=== PATIENT | male | born 1985 | race Two or more races ===

== ENCOUNTER 2018-01-01 18:52 | Inpatient (IN) | payer MEDICAID ==
[~2018-01-01] VITALS: Ht 182.9 cm; Wt 97.1 kg
[2018-01-01] MEDS ORDERED: LIDOCAINE 2%, 20ML SQ ONE (19:00)
[2018-01-01] MEDS ORDERED: AMLO5TAB4 PO (19:11)
[2018-01-01] MEDS ORDERED: METF500T17 PO (19:11)
[2018-01-01] MEDS ORDERED: LIDOCAINE-MPF 2%, 2ML ONE (19:21)
[2018-01-01 20:06] LABS: BASOPHILS % (AUTO) 0 % (0-1); EOSINOPHILS # (AUTO) 0.06 x10^3/uL (0-0.4); EOSINOPHILS % (AUTO) 0 % (1-7); LYMPHOCYTES # (AUTO) 1.72 x10^3/uL (1-3.4); LYMPHOCYTES % (AUTO) 13 % (22-44); MD NO; MEAN CORPUSCULAR HEMOGLOBIN 29.6 pg (27.5-34.5); MEAN CORPUSCULAR HGB CONC 34.3 g/dL (33.2-36.2); MEAN CORPUSCULAR VOLUME 86.2 fL (81-97); MEAN PLATELET VOLUME 9.2 fL (7.4-10.4); MONOCYTES # (AUTO) 1.16 x10^3/uL (0.2-0.8); MONOCYTES % (AUTO) 9 % (2-9); NEUTROPHILS # (AUTO) 10.43 x10^3/uL (1.8-6.8); NEUTROPHILS % (AUTO) 78 % (42-75); PLATELET COUNT 296 x10^3/uL (130-400); RED BLOOD COUNT 5.04 x10^6/uL (4.38-5.82); RED CELL DISTRIBUTION WIDTH 13.5 % (9.4-14.8)
[2018-01-01 20:17] LABS: ALANINE AMINOTRANSFERASE 28 U/L (12-78); ALBUMIN 3.7 g/dL (3.4-5.0); ANION GAP 20 mmol/L (5-15); CHLORIDE 94 mmol/L (98-107)
[2018-01-01 20:19] LABS: ALKALINE PHOSPHATASE 156 U/L (45-117); BILIRUBIN,TOTAL 0.5 mg/dL (0.2-1.0); CREATININE 1.33 mg/dL (0.7-1.3)
[2018-01-01 20:43] LABS: ACETONE, SERUM Large (80mg/dL) mg/dL (Negative)
[2018-01-01] MEDS ORDERED: SODIUM CHLORIDE 0.9% 1,000ML IVBOLUS ONE (21:00)
[2018-01-01] MEDS ORDERED: SODIUM CHLORIDE FLUSH 10ML SYR IVF ONE (21:00)
[2018-01-01] MEDS ORDERED: AMPICILLIN/SULBACTAM 3 GM in SODIUM CHLORIDE 0.9% 100 ML IV ONE (21:30)
[2018-01-01] MEDS ORDERED: REGULAR INSULIN 62.5 UNITS in SODIUM CHLORIDE 0.9% 249.375 ML IV PRN ×2 (21:37→22:07)
[2018-01-01 21:53] LABS: MICROSCOPIC NOT IND
[2018-01-01] MEDS ORDERED: D5%-0.45NACL+KCL 20MEQ 1,000 ML IV SCH (22:00)
[2018-01-01] MEDS ORDERED: OMNIPAQUE 350 MG/ML, 100ML BOTTLE ONE (22:00)
[2018-01-01] MEDS ORDERED: D5%-0.45% NACL 1,000 ML IV PRN (22:07)
[2018-01-01] MEDS ORDERED: SODIUM CHLORIDE 0.9% 1,000 ML IV SCH (22:07)
[2018-01-01] MEDS ORDERED: DEXTROSE 50%, 50ML SYRINGE IVPush PRN (22:30)
[2018-01-01] MEDS ORDERED: ONDANSETRON 2MG/ML, 2ML IVPush PRN (22:30)
[2018-01-01] MEDS ORDERED: DEXTROSE 4 GM TAB.CHEW PO PRN (22:30)
[2018-01-01] MEDS ORDERED: ACETAMINOPHEN 325 MG TABLET PO PRN (22:30)
[2018-01-01] MEDS ORDERED: GLUCAGON 1 MG IM PRN (22:30)
[2018-01-01] MEDS ORDERED: AMPICILLIN/SULBACTAM 3 GM in SODIUM CHLORIDE 0.9% 100 ML IV SCH (22:30)
[2018-01-01 23:00] LABS: HEMOGLOBIN A1C 11.5 % (4.2-6.3)
[2018-01-02 00:34] VITALS: BP 159/102
[2018-01-02 00:53] LABS: ANION GAP 17 mmol/L (5-15); CALCIUM 8.3 mg/dL (8.5-10.1); CHLORIDE 104 mmol/L (98-107); CREATININE 1.11 mg/dL (0.7-1.3)
[2018-01-02] MEDS ORDERED: POTASSIUM CHLORIDE 20 MEQ TAB.ER.PRT PO ONE (02:30)
[2018-01-02 04:40] LABS: CHLORIDE 106 mmol/L (98-107)
[2018-01-02 04:47] LABS: ANION GAP 14 mmol/L (5-15); CALCIUM 8.3 mg/dL (8.5-10.1); CREATININE 0.94 mg/dL (0.7-1.3)
[2018-01-02] MEDS: AMPICILLIN/SULBACTAM 3 GM in SODIUM CHLORIDE 0.9% 100 ML IV SCH ×3 (05:20→20:45)
[2018-01-02] MEDS ORDERED: POTASSIUM PHOSPHATE 44 MEQ in SODIUM CHLORIDE 0.9% 500 ML IV ONE (07:00)
[2018-01-02 08:51] LABS: ANION GAP 15 mmol/L (5-15); CALCIUM 8.2 mg/dL (8.5-10.1); CHLORIDE 106 mmol/L (98-107)
[2018-01-02 08:52] LABS: CREATININE 0.97 mg/dL (0.7-1.3)
[2018-01-02] MEDS ORDERED: REGULAR INSULIN 62.5 UNITS in SODIUM CHLORIDE 0.9% 249.375 ML IV PRN (09:30)
[2018-01-02 09:45] LABS: INTERNATIONAL NORMALIZED RATIO 0.9 (0.93-1.1); PROTHROMBIN TIME 9.4 Seconds (9.6-11.5)
[2018-01-02] MEDS: FAMOTIDINE 20 MG/2 ML IVPush SCH ×2 (10:55→20:51)
[2018-01-02] MEDS: SODIUM CHLORIDE FLUSH 10ML SYR IVF SCH ×4 (10:55→20:45)
[2018-01-02] MEDS: LISINOPRIL 10 MG TABLET PO SCH (10:55)
[2018-01-02] MEDS: D5%-0.45% NACL 1,000 ML IV PRN (11:19)
[2018-01-02 13:26] LABS: ANION GAP 12 mmol/L (5-15); CALCIUM 8.1 mg/dL (8.5-10.1); CHLORIDE 108 mmol/L (98-107); CREATININE 0.76 mg/dL (0.7-1.3)
[2018-01-02] MEDS ORDERED: LIDOCAINE 1%-EPI 1:100K, 30ML ONE (14:31)
[2018-01-02] MEDS ORDERED: NEOSPORIN OINT, 15GM ONE (14:31)
[2018-01-02] MEDS ORDERED: FENTANYL PF 100 MCG/2ML ONE (14:55)
[2018-01-02] MEDS ORDERED: MIDAZOLAM 1 MG/ML, 2ML ONE (14:55)
[2018-01-02] MEDS ORDERED: OXYMETAZOLINE NASAL SPRAY 0.05%, 15ML ONE (15:09)
[2018-01-02] MEDS ORDERED: INSULIN SINGLE DOSE, ER SQ-INSULIN ONE (15:11)
[2018-01-02] MEDS ORDERED: PROPOFOL 10 MG/ML, 20ML ONE (15:11)
[2018-01-02] MEDS ORDERED: ONDANSETRON 2MG/ML, 2ML ONE (15:11)
[2018-01-02] MEDS ORDERED: FENTANYL PF 250 MCG/5ML ONE (15:22)
[2018-01-02] MEDS ORDERED: LIDOCAINE 1%-EPI 1:100K, 30ML INFIL ONE (15:27)
[2018-01-02] MEDS ORDERED: LABETALOL 5MG/ML, 20ML IV PRN (16:30)
[2018-01-02] MEDS ORDERED: ONDANSETRON 2MG/ML, 2ML IV PRN (16:30)
[2018-01-02] MEDS ORDERED: PROMETHAZINE 25 MG/ML, 1ML IV PRN (16:30)
[2018-01-02] MEDS ORDERED: ENALAPRILAT 1.25 MG/ML, 2ML IV PRN (16:30)
[2018-01-02] MEDS ORDERED: MORPHINE SULFATE 4 MG/ML, 1ML IVPush PRN ×2 (16:30→20:30)
[2018-01-02] MEDS ORDERED: OXYcodone 5 MG/5 ML ORAL.SOL UDC PO PRN (16:30)
[2018-01-02] MEDS ORDERED: ONDANSETRON ODT 8 MG PO PRN (16:30)
[2018-01-02] MEDS ORDERED: MEPERIDINE/PF 25MG/0.5ML IVPush PRN (16:30)
[2018-01-02] MEDS ORDERED: ACETAMINOPHEN 325 MG TABLET PO PRN (16:30)
[2018-01-02] MEDS ORDERED: FENTANYL PF 100 MCG/2ML IV PRN (16:30)
[2018-01-02] MEDS ORDERED: OXYcodone 5 MG/5 ML ORAL.SOL UDC ONE (16:31)
[2018-01-02] MEDS ORDERED: MEPERIDINE/PF 50 MG/ML ONE (16:31)
[2018-01-02 18:50] LABS: ANION GAP 13 mmol/L (5-15); CALCIUM 8.1 mg/dL (8.5-10.1); CHLORIDE 107 mmol/L (98-107); CREATININE 0.85 mg/dL (0.7-1.3)
[2018-01-02 23:25] LABS: ANION GAP 9 mmol/L (5-15); CHLORIDE 110 mmol/L (98-107); CREATININE 0.78 mg/dL (0.7-1.3)
[2018-01-03] MEDS: D5%-0.45% NACL 1,000 ML IV PRN (02:08)
[2018-01-03] MEDS: AMPICILLIN/SULBACTAM 3 GM in SODIUM CHLORIDE 0.9% 100 ML IV SCH ×4 (03:12→21:12)
[2018-01-03 04:46] LABS: BASOPHILS # (AUTO) 0.03 x10^3/uL (0-0.1); BASOPHILS % (AUTO) 0 % (0-1); EOSINOPHILS % (AUTO) 1 % (1-7); LYMPHOCYTES # (AUTO) 1.16 x10^3/uL (1-3.4); LYMPHOCYTES % (AUTO) 13 % (22-44); MD NO; MEAN CORPUSCULAR HEMOGLOBIN 29.5 pg (27.5-34.5); MEAN CORPUSCULAR HGB CONC 34.5 g/dL (33.2-36.2); MEAN CORPUSCULAR VOLUME 85.4 fL (81-97); MEAN PLATELET VOLUME 8.3 fL (7.4-10.4); MONOCYTES % (AUTO) 9 % (2-9); NEUTROPHILS # (AUTO) 6.89 x10^3/uL (1.8-6.8); NEUTROPHILS % (AUTO) 77 % (42-75); PLATELET COUNT 260 x10^3/uL (130-400); RED BLOOD COUNT 4.29 x10^6/uL (4.38-5.82); RED CELL DISTRIBUTION WIDTH 13.9 % (9.4-14.8)
[2018-01-03 04:54] LABS: ALBUMIN 2.7 g/dL (3.4-5.0); ANION GAP 9 mmol/L (5-15); CALCIUM 8.2 mg/dL (8.5-10.1); CHLORIDE 110 mmol/L (98-107)
[2018-01-03 04:59] LABS: ALANINE AMINOTRANSFERASE 22 U/L (12-78); ALKALINE PHOSPHATASE 95 U/L (45-117); BILIRUBIN,TOTAL 0.4 mg/dL (0.2-1.0); CREATININE 0.76 mg/dL (0.7-1.3); TOTAL PROTEIN 6.4 g/dL (6.4-8.2)
[2018-01-03] MEDS: SODIUM CHLORIDE FLUSH 10ML SYR IVF SCH ×4 (08:40→21:00)
[2018-01-03] MEDS: LISINOPRIL 10 MG TABLET PO SCH (08:43)
[2018-01-03] MEDS: ENOXAPARIN 40 MG/0.4 ML SQ SCH (08:44)
[2018-01-03] MEDS: FAMOTIDINE 20 MG/2 ML IVPush SCH ×2 (08:44→21:12)
[2018-01-03 11:00] VITALS: BP 129/68
[2018-01-03] MEDS ORDERED: INSULIN GLARGINE 100 UNITS/ML, PEN SQ-INSULIN SCH (11:05)
[2018-01-03] MEDS ORDERED: ACETAMINOPHEN 500 MG TABLET PO PRN (11:06)
[2018-01-03] MEDS ORDERED: POTASSIUM PHOSPHATE 44 MEQ in SODIUM CHLORIDE 0.9% 500 ML IV ONE (11:30)
[2018-01-03] MEDS ORDERED: INSULIN LISPRO 100 UNITS/ML, PEN SQ-INSULIN SCH (13:00)
[2018-01-03 14:00] VITALS: BP 132/92
[2018-01-03] MEDS: INSULIN LISPRO 100 UNITS/ML, PEN SQ-INSULIN SCH ×2 (16:35→21:51)
[2018-01-03] MEDS: MICAFUNGIN 100 MG in SODIUM CHLORIDE 0.9% 100 ML IV SCH (19:42)
[2018-01-03 20:10] VITALS: BP 136/83
[2018-01-03 21:13] VITALS: BP 126/62
[2018-01-03] MEDS: INSULIN GLARGINE 100 UNITS/ML, PEN SQ-INSULIN SCH (21:51)
[2018-01-04] MEDS: INSULIN LISPRO 100 UNITS/ML, PEN SQ-INSULIN SCH ×6 (01:11→21:22)
[2018-01-04 02:50] VITALS: BP 141/82
[2018-01-04] MEDS: AMPICILLIN/SULBACTAM 3 GM in SODIUM CHLORIDE 0.9% 100 ML IV SCH ×4 (02:55→21:11)
[2018-01-04 05:22] LABS: BASOPHILS # (AUTO) 0.02 x10^3/uL (0-0.1); BASOPHILS % (AUTO) 0 % (0-1); EOSINOPHILS # (AUTO) 0.13 x10^3/uL (0-0.4); EOSINOPHILS % (AUTO) 2 % (1-7); LYMPHOCYTES # (AUTO) 1.46 x10^3/uL (1-3.4); LYMPHOCYTES % (AUTO) 25 % (22-44); MD NO; MEAN CORPUSCULAR HEMOGLOBIN 29.1 pg (27.5-34.5); MEAN CORPUSCULAR VOLUME 85.7 fL (81-97); MEAN PLATELET VOLUME 8.1 fL (7.4-10.4); MONOCYTES # (AUTO) 0.75 x10^3/uL (0.2-0.8); MONOCYTES % (AUTO) 13 % (2-9); NEUTROPHILS # (AUTO) 3.46 x10^3/uL (1.8-6.8); NEUTROPHILS % (AUTO) 59 % (42-75); PLATELET COUNT 250 x10^3/uL (130-400); RED BLOOD COUNT 4.17 x10^6/uL (4.38-5.82); RED CELL DISTRIBUTION WIDTH 13.4 % (9.4-14.8)
[2018-01-04 05:38] LABS: CHLORIDE 107 mmol/L (98-107)
[2018-01-04 05:46] LABS: ANION GAP 13 mmol/L (5-15); CALCIUM 8.2 mg/dL (8.5-10.1); CREATININE 0.61 mg/dL (0.7-1.3)
[2018-01-04 07:13] VITALS: BP 144/94
[2018-01-04] MEDS: SODIUM CHLORIDE FLUSH 10ML SYR IVF SCH ×4 (09:00→21:00)
[2018-01-04] MEDS: LISINOPRIL 20 MG TABLET PO SCH (09:00)
[2018-01-04] MEDS: ENOXAPARIN 40 MG/0.4 ML SQ SCH (09:20)
[2018-01-04] MEDS: INSULIN GLARGINE 100 UNITS/ML, PEN SQ-INSULIN SCH ×2 (09:20→21:23)
[2018-01-04] MEDS: POTASSIUM CHLORIDE 20 MEQ TAB.ER.PRT PO SCH (17:28)
[2018-01-04] MEDS: MICAFUNGIN 100 MG in SODIUM CHLORIDE 0.9% 100 ML IV SCH (19:54)
[2018-01-04 19:56] VITALS: BP 127/86
[2018-01-04] MEDS: metFORMIN 500 MG TABLET PO SCH (21:09)
[2018-01-05] MEDS: INSULIN LISPRO 100 UNITS/ML, PEN SQ-INSULIN SCH ×6 (00:55→20:43)
[2018-01-05 02:42] VITALS: BP 121/80
[2018-01-05] MEDS: AMPICILLIN/SULBACTAM 3 GM in SODIUM CHLORIDE 0.9% 100 ML IV SCH ×4 (02:56→21:49)
[2018-01-05 07:13] VITALS: BP 141/88
[2018-01-05 08:00] LABS: ANION GAP 10 mmol/L (5-15); CALCIUM 8.6 mg/dL (8.5-10.1); CHLORIDE 107 mmol/L (98-107); CREATININE 0.66 mg/dL (0.7-1.3)
[2018-01-05] MEDS: SODIUM CHLORIDE FLUSH 10ML SYR IVF SCH ×4 (09:00→20:43)
[2018-01-05] MEDS: metFORMIN 500 MG TABLET PO SCH ×2 (09:32→20:35)
[2018-01-05] MEDS: DOXYCYCLINE 100MG TABLET PO SCH ×2 (09:32→20:35)
[2018-01-05] MEDS: POTASSIUM CHLORIDE 20 MEQ TAB.ER.PRT PO SCH ×2 (09:32→17:16)
[2018-01-05] MEDS: AMLODIPINE 5 MG TABLET PO SCH (09:33)
[2018-01-05] MEDS: LISINOPRIL 20 MG TABLET PO SCH (09:33)
[2018-01-05] MEDS: ENOXAPARIN 40 MG/0.4 ML SQ SCH (09:34)
[2018-01-05] MEDS: INSULIN GLARGINE 100 UNITS/ML, PEN SQ-INSULIN SCH ×2 (09:53→20:42)
[2018-01-05 15:06] VITALS: BP 138/82
[2018-01-05] MEDS: MICAFUNGIN 100 MG in SODIUM CHLORIDE 0.9% 100 ML IV SCH (20:35)
[2018-01-05 20:49] VITALS: BP 139/85
[2018-01-06 02:42] VITALS: BP 129/82
[2018-01-06] MEDS: AMPICILLIN/SULBACTAM 3 GM in SODIUM CHLORIDE 0.9% 100 ML IV SCH ×4 (02:51→21:03)
[2018-01-06 05:47] LABS: ANION GAP 7 mmol/L (5-15); CALCIUM 8.8 mg/dL (8.5-10.1); CHLORIDE 107 mmol/L (98-107)
[2018-01-06 05:50] LABS: ALANINE AMINOTRANSFERASE 27 U/L (12-78); ALKALINE PHOSPHATASE 103 U/L (45-117); BILIRUBIN,TOTAL 0.3 mg/dL (0.2-1.0); CREATININE 0.79 mg/dL (0.7-1.3); TOTAL PROTEIN 7.1 g/dL (6.4-8.2)
[2018-01-06 06:00] LABS: BASOPHILS # (AUTO) 0.02 x10^3/uL (0-0.1); BASOPHILS % (AUTO) 0 % (0-1); EOSINOPHILS # (AUTO) 0.12 x10^3/uL (0-0.4); EOSINOPHILS % (AUTO) 2 % (1-7); LYMPHOCYTES # (AUTO) 2.17 x10^3/uL (1-3.4); LYMPHOCYTES % (AUTO) 29 % (22-44); MD NO; MEAN CORPUSCULAR HEMOGLOBIN 29.2 pg (27.5-34.5); MEAN CORPUSCULAR HGB CONC 33.6 g/dL (33.2-36.2); MEAN CORPUSCULAR VOLUME 86.8 fL (81-97); MEAN PLATELET VOLUME 7.7 fL (7.4-10.4); MONOCYTES # (AUTO) 0.68 x10^3/uL (0.2-0.8); MONOCYTES % (AUTO) 9 % (2-9); NEUTROPHILS # (AUTO) 4.42 x10^3/uL (1.8-6.8); NEUTROPHILS % (AUTO) 60 % (42-75); PLATELET COUNT 340 x10^3/uL (130-400); RED BLOOD COUNT 4.73 x10^6/uL (4.38-5.82); RED CELL DISTRIBUTION WIDTH 13.8 % (9.4-14.8)
[2018-01-06] MEDS: INSULIN LISPRO 100 UNITS/ML, PEN SQ-INSULIN SCH ×4 (07:00→21:18)
[2018-01-06 07:35] VITALS: BP 148/92
[2018-01-06] MEDS: LISINOPRIL 20 MG TABLET PO SCH (09:00)
[2018-01-06] MEDS: metFORMIN 500 MG TABLET PO SCH ×2 (09:00→21:08)
[2018-01-06] MEDS: AMLODIPINE 5 MG TABLET PO SCH (09:00)
[2018-01-06] MEDS: ENOXAPARIN 40 MG/0.4 ML SQ SCH (09:00)
[2018-01-06] MEDS: SODIUM CHLORIDE FLUSH 10ML SYR IVF SCH ×4 (09:00→21:03)
[2018-01-06] MEDS: INSULIN GLARGINE 100 UNITS/ML, PEN SQ-INSULIN SCH ×2 (09:01→21:17)
[2018-01-06] MEDS: SULFAMETH./TRIMETHOPRIM DS 800MG/160MG TABLET PO SCH ×2 (09:16→21:08)
[2018-01-06] MEDS: POTASSIUM CHLORIDE 20 MEQ TAB.ER.PRT PO SCH ×2 (10:16→18:35)
[2018-01-06 13:56] VITALS: BP 121/80
[2018-01-06 19:45] VITALS: BP 131/87
[2018-01-06] MEDS: MICAFUNGIN 100 MG in SODIUM CHLORIDE 0.9% 100 ML IV SCH (19:55)
[2018-01-07 02:44] VITALS: BP 124/71
[2018-01-07] MEDS: AMPICILLIN/SULBACTAM 3 GM in SODIUM CHLORIDE 0.9% 100 ML IV SCH ×4 (02:53→21:17)
[2018-01-07 05:46] LABS: HCT (SEDRATE) 37.8 % (39.2-51.8)
[2018-01-07] MEDS: INSULIN LISPRO 100 UNITS/ML, PEN SQ-INSULIN SCH ×4 (06:23→21:00)
[2018-01-07 07:24] VITALS: BP 126/78
[2018-01-07] MEDS: LISINOPRIL 20 MG TABLET PO SCH (08:28)
[2018-01-07] MEDS: AMLODIPINE 5 MG TABLET PO SCH (08:28)
[2018-01-07] MEDS: metFORMIN 500 MG TABLET PO SCH ×2 (08:28→21:17)
[2018-01-07] MEDS: POTASSIUM CHLORIDE 20 MEQ TAB.ER.PRT PO SCH ×2 (08:28→18:05)
[2018-01-07] MEDS: SODIUM CHLORIDE FLUSH 10ML SYR IVF SCH ×4 (08:29→21:18)
[2018-01-07] MEDS: INSULIN GLARGINE 100 UNITS/ML, PEN SQ-INSULIN SCH ×2 (08:29→21:35)
[2018-01-07] MEDS: ENOXAPARIN 40 MG/0.4 ML SQ SCH (11:13)
[2018-01-07 13:45] VITALS: BP 116/77
[2018-01-07] MEDS: MICAFUNGIN 100 MG in SODIUM CHLORIDE 0.9% 100 ML IV SCH (19:41)
[2018-01-07 19:51] VITALS: BP 119/69
[2018-01-07] MEDS: POSACONAZOLE 200 MG/5 ML ORAL SUSP PO SCH (21:44)
[2018-01-08 00:33] VITALS: BP 133/76
[2018-01-08] MEDS: AMPICILLIN/SULBACTAM 3 GM in SODIUM CHLORIDE 0.9% 100 ML IV SCH ×4 (03:03→21:50)
[2018-01-08] MEDS: INSULIN LISPRO 100 UNITS/ML, PEN SQ-INSULIN SCH ×4 (06:48→22:11)
[2018-01-08 06:54] VITALS: BP 136/79
[2018-01-08 07:45] LABS: ANION GAP 8 mmol/L (5-15); CALCIUM 8.7 mg/dL (8.5-10.1); CHLORIDE 107 mmol/L (98-107); CREATININE 0.87 mg/dL (0.7-1.3)
[2018-01-08] MEDS: SODIUM CHLORIDE FLUSH 10ML SYR IVF SCH ×4 (09:00→21:00)
[2018-01-08] MEDS: POSACONAZOLE 200 MG/5 ML ORAL SUSP PO SCH ×2 (09:06→21:53)
[2018-01-08] MEDS: AMLODIPINE 5 MG TABLET PO SCH (09:07)
[2018-01-08] MEDS: LISINOPRIL 20 MG TABLET PO SCH (09:07)
[2018-01-08] MEDS: INSULIN GLARGINE 100 UNITS/ML, PEN SQ-INSULIN SCH ×2 (09:07→22:12)
[2018-01-08] MEDS: metFORMIN 500 MG TABLET PO SCH ×2 (09:07→21:53)
[2018-01-08] MEDS: ENOXAPARIN 40 MG/0.4 ML SQ SCH (11:00)
[2018-01-08 13:34] VITALS: BP 109/62
[2018-01-08 21:40] VITALS: BP 113/70
[2018-01-09 00:54] VITALS: BP 128/82
[2018-01-09] MEDS: AMPICILLIN/SULBACTAM 3 GM in SODIUM CHLORIDE 0.9% 100 ML IV SCH ×4 (03:02→22:31)
[2018-01-09] MEDS: INSULIN LISPRO 100 UNITS/ML, PEN SQ-INSULIN SCH ×4 (06:34→22:29)
[2018-01-09 07:08] VITALS: BP 112/68
[2018-01-09] MEDS: POSACONAZOLE 200 MG/5 ML ORAL SUSP PO SCH ×2 (09:05→22:31)
[2018-01-09] MEDS: LISINOPRIL 20 MG TABLET PO SCH (09:06)
[2018-01-09] MEDS: metFORMIN 500 MG TABLET PO SCH ×2 (09:06→22:31)
[2018-01-09] MEDS: AMLODIPINE 5 MG TABLET PO SCH (09:06)
[2018-01-09] MEDS: INSULIN GLARGINE 100 UNITS/ML, PEN SQ-INSULIN SCH ×2 (09:09→22:44)
[2018-01-09] MEDS: SODIUM CHLORIDE FLUSH 10ML SYR IVF SCH ×4 (09:10→22:35)
[2018-01-09] MEDS: ENOXAPARIN 40 MG/0.4 ML SQ SCH (11:15)
[2018-01-09] MEDS ORDERED: POSA200O PO ×3 (11:59→15:21)
[2018-01-09 13:00] VITALS: BP 110/75
[2018-01-09] MEDS ORDERED: AMOX1TAB64 PO (15:19)
[2018-01-09] MEDS ORDERED: LISI-170 PO (15:19)
[2018-01-09] MEDS ORDERED: INSU100I11 SQ-INSULIN (15:19)
[2018-01-09] MEDS ORDERED: INSU100I13 SQ-INSULIN ×2 (15:19)
[2018-01-09 18:31] VITALS: BP 117/77
[2018-01-10 00:28] VITALS: BP 127/80
[2018-01-10] MEDS: AMPICILLIN/SULBACTAM 3 GM in SODIUM CHLORIDE 0.9% 100 ML IV SCH ×4 (03:22→20:49)
[2018-01-10] MEDS: INSULIN LISPRO 100 UNITS/ML, PEN SQ-INSULIN SCH ×4 (07:00→20:21)
[2018-01-10 07:36] VITALS: BP 117/76
[2018-01-10] MEDS ORDERED: INSULIN GLARGINE 100 UNITS/ML, PEN SQ-INSULIN SCH (09:00)
[2018-01-10] MEDS: SODIUM CHLORIDE FLUSH 10ML SYR IVF SCH ×4 (09:00→21:00)
[2018-01-10] MEDS: ENOXAPARIN 40 MG/0.4 ML SQ SCH (09:25)
[2018-01-10] MEDS: metFORMIN 500 MG TABLET PO SCH ×2 (09:25→21:14)
[2018-01-10] MEDS: LISINOPRIL 20 MG TABLET PO SCH (09:25)
[2018-01-10] MEDS: POSACONAZOLE 200 MG/5 ML ORAL SUSP PO SCH ×2 (09:25→21:14)
[2018-01-10 13:04] VITALS: BP 129/79
[2018-01-10 20:03] VITALS: BP 116/71
[2018-01-10] MEDS: INSULIN GLARGINE 100 UNITS/ML, PEN SQ-INSULIN SCH (21:15)
[2018-01-11] MEDS: AMPICILLIN/SULBACTAM 3 GM in SODIUM CHLORIDE 0.9% 100 ML IV SCH (02:33)
[2018-01-11 02:48] VITALS: BP 116/73
[2018-01-11 05:49] LABS: BASOPHILS # (AUTO) 0.04 x10^3/uL (0-0.1); BASOPHILS % (AUTO) 1 % (0-1); EOSINOPHILS # (AUTO) 0.15 x10^3/uL (0-0.4); EOSINOPHILS % (AUTO) 2 % (1-7); LYMPHOCYTES # (AUTO) 2.09 x10^3/uL (1-3.4); LYMPHOCYTES % (AUTO) 32 % (22-44); MD NO; MEAN CORPUSCULAR HEMOGLOBIN 29.2 pg (27.5-34.5); MEAN CORPUSCULAR HGB CONC 33.6 g/dL (33.2-36.2); MEAN CORPUSCULAR VOLUME 86.9 fL (81-97); MEAN PLATELET VOLUME 7.9 fL (7.4-10.4); MONOCYTES # (AUTO) 0.81 x10^3/uL (0.2-0.8); MONOCYTES % (AUTO) 12 % (2-9); NEUTROPHILS # (AUTO) 3.53 x10^3/uL (1.8-6.8); NEUTROPHILS % (AUTO) 53 % (42-75); PLATELET COUNT 317 x10^3/uL (130-400); RED BLOOD COUNT 4.21 x10^6/uL (4.38-5.82); RED CELL DISTRIBUTION WIDTH 13.8 % (9.4-14.8)
[2018-01-11 05:59] LABS: ALBUMIN 2.9 g/dL (3.4-5.0); ANION GAP 11 mmol/L (5-15); CALCIUM 8.6 mg/dL (8.5-10.1); CHLORIDE 106 mmol/L (98-107)
[2018-01-11 06:03] LABS: ALANINE AMINOTRANSFERASE 91 U/L (12-78); ALKALINE PHOSPHATASE 95 U/L (45-117); BILIRUBIN,TOTAL 0.2 mg/dL (0.2-1.0); CREATININE 1.04 mg/dL (0.7-1.3)
[2018-01-11] MEDS: INSULIN LISPRO 100 UNITS/ML, PEN SQ-INSULIN SCH ×4 (07:00→21:00)
[2018-01-11 07:22] VITALS: BP 128/84
[2018-01-11] MEDS: POSACONAZOLE 200 MG/5 ML ORAL SUSP PO SCH ×2 (08:16→21:26)
[2018-01-11] MEDS: metFORMIN 500 MG TABLET PO SCH ×2 (08:16→21:26)
[2018-01-11] MEDS: AMOXICILLIN/CLAV 875-125MG TABLET PO SCH ×2 (08:16→16:27)
[2018-01-11] MEDS: LISINOPRIL 20 MG TABLET PO SCH (08:16)
[2018-01-11] MEDS: SODIUM CHLORIDE FLUSH 10ML SYR IVF SCH ×4 (08:16→21:26)
[2018-01-11] MEDS: ENOXAPARIN 40 MG/0.4 ML SQ SCH (08:18)
[2018-01-11 12:45] VITALS: BP 117/75
[2018-01-11 20:12] VITALS: BP 137/80
[2018-01-11] MEDS ORDERED: INSULIN GLARGINE 100 UNITS/ML, PEN SQ-INSULIN SCH (21:00)
[2018-01-12] MEDS: AMOXICILLIN/CLAV 875-125MG TABLET PO SCH ×2 (00:06→08:57)
[2018-01-12 02:39] VITALS: BP 110/68
[2018-01-12] MEDS: INSULIN LISPRO 100 UNITS/ML, PEN SQ-INSULIN SCH ×2 (07:00→11:00)
[2018-01-12 07:31] VITALS: BP 124/79
[2018-01-12] MEDS: metFORMIN 500 MG TABLET PO SCH (08:55)
[2018-01-12] MEDS: ENOXAPARIN 40 MG/0.4 ML SQ SCH (08:55)
[2018-01-12] MEDS: SODIUM CHLORIDE FLUSH 10ML SYR IVF SCH ×2 (08:55→08:57)
[2018-01-12] MEDS: LISINOPRIL 20 MG TABLET PO SCH (08:55)
[2018-01-12] MEDS: POSACONAZOLE 200 MG/5 ML ORAL SUSP PO SCH (08:59)
[2018-01-12 12:32] VITALS: BP 113/72
[2018-01-12] MEDS ORDERED: AMOX1TAB12 PO ×2 (13:12→13:24)
== END 2018-01-12 14:29 | disposition home or self-care (01) | DRG 853 ==
LOC: ED 21:13 → EDIP 21:46 → CCU 23:53 → 4NOR 01-03 17:39 → DCLOUNGE 01-12 14:11
PROVIDERS: ADMIT Hospitalist; ATTEND Hospitalist
PROC: 0CDXXZ1 Extraction of Lower Tooth, Multiple, External Approach (ICD-10-PCS; 2018-01-02)
PROC: 0CDWXZ1 Extraction of Upper Tooth, Multiple, External Approach (ICD-10-PCS; 2018-01-02)
PROC: 0JB10ZZ Excision of Face Subcutaneous Tissue and Fascia, Open Approach (ICD-10-PCS; principal; 2018-01-02 15:00)
DX: A41.9 Sepsis, unspecified organism (principal); E11.10 Type 2 diabetes mellitus with ketoacidosis without coma; E87.1 Hypo-osmolality and hyponatremia; L02.01 Cutaneous abscess of face; N17.9 Acute kidney failure, unspecified; B49 Unspecified mycosis; K12.2 Cellulitis and abscess of mouth; I10 Essential (primary) hypertension; K02.9 Dental caries, unspecified; K04.7 Periapical abscess without sinus; Z79.4 Long term (current) use of insulin; Z79.899 Other long term (current) drug therapy; Z83.3 Family history of diabetes mellitus; A49.01 Methicillin susceptible Staphylococcus aureus infection, unspecified site; B95.1 Streptococcus, group B, as the cause of diseases classified elsewhere
CPT/HCPCS: 36415; 84145; 99291; S0028; 70487; 80048; 80053; 81003; 82010; 82800; 82962; 83036; 83605; 83735; 84100; 85025; 85610; 85651; 86141; 87040; 87070; 87075; 87077; 87081; 87147; 87181; 87186; 87205; 96365; 96367; G0378; J0295; J1650; J1815; J2175; J2248; J2250; J2405; J2704; J3010; J3490; Q9967; J3480; J7030; J7040; J7050